=== PATIENT | female | born 1950 | race Caucasian/White ===

== ENCOUNTER 2021-08-31 21:52 | Emergency (ER) | payer BC, MEDICARE ==
--- NOTE | 2021-08-31 22:15 | EDM.PDOC ---
ED HPI GENERAL MEDICAL PROBLEM - General Stated Complaint: MEDICAL VIA HELENA Time Seen by Provider: 08/31/21 22:01 Source of Information: Reports: EMS History Limitations: Reports: Altered Mental Status - History of Present Illness INITIAL COMMENTS - FREE TEXT/NARRATIVE: ADOLPH 22:00 MD in room on arrival. [id number] female brought in by [facility] from their cabin for head injury with loss of consciousness. Patient tripped over a rug in the cabin causing her to fall and strike her face and forehead on the ground. There was loss of consciousness for about 10 minutes. The patient is now confused and has a large hematoma on the forehead and face. The patient is anticoagulated with Coumadin for atrial fibrillation. For this reason we activated a trauma team activation. Patient was taken from the ambulance bay directly to CT room for a CT of the head without contrast to evaluate for a bleed. She is from the [facility] normally doctors at [facility]. She is on chronic anticoagulation for atrial fibrillation. Her last INR was 3 months ago. The patient perseverates with questions and is still not fully aware of the situation. denies pain Pain Score (Numeric/FACES): 0 - Related Data Allergies Allergy/AdvReac Type Severity Reaction Status Date / Time No Known Allergies Allergy Verified 08/31/21 22:19 ED ROS GENERAL - Review of Systems Review Of Systems: Unable To Obtain Reason Not Obtained: Altered mental status with confusion HEENT: Reports: Other (Swelling of the left forehead and face) Respiratory: Reports: No Symptoms Cardiovascular: Reports: Blood Pressure Problem GI/Abdominal: Reports: No Symptoms. Denies: Nausea, Vomiting : Reports: Other (Immediately upon arriving on the CT table the patient had to urinate and was incontinent of urine) Musculoskeletal: Reports: No Symptoms Skin: Reports: Bruising (Bruising on the left forehead and left face), Wound (Patient on the left face) Neurological: Reports: Confusion Psychiatric: Reports: Anxiety Hematologic/Lymphatic: Reports: No Symptoms Immunologic: Reports: No Symptoms - Physical Exam Exam: See Below Exam Limited By: Altered Mental Status (Having episodes of confusion and altered mental status. She has perseveration.) General Appearance: Alert, Anxious, Mild Distress Eye Exam: Bilateral Eye: EOMI, PERRL Ears: Normal TMs Nose: Normal Inspection, Normal Mucosa Throat/Mouth: Normal Inspection, Normal Oropharynx, Normal Voice, No Airway Compromise Head Exam: Normocephalic, Facial Ecchymosis (Left ecchymosis on the forehead and zygomatic arch), Facial Swelling (Swelling over the left forehead and left face), Facial Tenderness (Left facial tenderness) Neck: Normal Inspection. No: Tender Midline Respiratory/Chest: No Respiratory Distress, Lungs Clear, Normal Breath Sounds Cardiovascular: Normal Peripheral Pulses, Regular Rate, Rhythm, No Murmur GI/Abdominal: Normal Bowel Sounds, Soft, Non-Tender Neuro Exam (Abbreviated): Alert, No Motor/Sensory Deficits, Confused, Disoriented, Slow to Respond Extremities: Normal Inspection, Normal Range of Motion Psychiatric: Anxious Skin Exam: Wound/Incision (Abrasion left face) Course - Vital Signs Last Recorded V/S: Last Vital Signs Temp 36.3 C 08/31/21 23:27 Pulse 63 08/31/21 23:27 Resp 20 08/31/21 23:27 BP 154/83 H 08/31/21 23:27 Pulse Ox 93 L 08/31/21 23:27 - Orders/Labs/Meds Orders: Active Orders 24 hr Category Date Time Status CORONAVIRUS COVID-19 RAPID [MOLEC] Stat Lab 09/01/21 00:01 Ordered Labs: Laboratory Tests 08/31/21 08/31/21 08/31/21 Range/Units 22:25 22:25 22:25 WBC 8.5 (4.5-11.0) K/uL RBC 4.35 (3.30-5.50) M/uL Hgb 13.5 (12.0-15.0) g/dL Hct 40.8 (36.0-48.0) % MCV 94 (80-98) fL MCH 31 (27-31) pg MCHC 33 (32-36) % Plt Count 206 (150-400) K/uL Neut % (Auto) 48.0 (36-66) % Lymph % (Auto) 40.5 (24-44) % Trimble % (Auto) 8.5 H (2-6) % Eos % (Auto) 2.3 (2-4) % Baso % (Auto) 0.7 (0-1) % PT 10.9 H (9.2-10.6) sec INR 1.1 APTT 24.5 (21.4-31.8) sec Sodium 141 (140-148) mmol/L Potassium 4.1 (3.6-5.2) mmol/L Chloride 103 (100-108) mmol/L Carbon Dioxide 25 (21-32) mmol/L Anion Gap 12.8 (5.0-14.0) mmol/L BUN 9 (7-18) mg/dL Creatinine 0.7 (0.6-1.0) mg/dL Est Cr Clr Drug Dosing 64.41 mL/min Estimated GFR (MDRD) > 60 (>60) Glucose 144 H (74-106) mg/dL Calcium 9.1 (8.5-10.1) mg/dL Urine Color (YELLOW) Urine Appearance (CLEAR) Urine pH (5.0-8.0) Ur Specific Heyworth (1.008-1.030) Urine Protein (NEGATIVE) mg/dL Urine Glucose (UA) (NEGATIVE) mg/dL Urine Ketones (NEGATIVE) mg/dL Urine Occult Blood (NEGATIVE) Urine Nitrite (NEGATIVE) Urine Bilirubin (NEGATIVE) Urine Urobilinogen (0.2-1.0) EU/dL Ur Leukocyte Esterase (NEGATIVE) Urine RBC (0-5) Urine WBC (0-5) Ur Epithelial Cells Amorphous Sediment Urine Bacteria Urine Mucus 08/31/21 Range/Units 22:46 WBC (4.5-11.0) K/uL RBC (3.30-5.50) M/uL Hgb (12.0-15.0) g/dL Hct (36.0-48.0) % MCV (80-98) fL MCH (27-31) pg MCHC (32-36) % Plt Count (150-400) K/uL Neut % (Auto) (36-66) % Lymph % (Auto) (24-44) % Trimble % (Auto) (2-6) % Eos % (Auto) (2-4) % Baso % (Auto) (0-1) % PT (9.2-10.6) sec INR APTT (21.4-31.8) sec Sodium (140-148) mmol/L Potassium (3.6-5.2) mmol/L Chloride (100-108) mmol/L Carbon Dioxide (21-32) mmol/L Anion Gap (5.0-14.0) mmol/L BUN (7-18) mg/dL Creatinine (0.6-1.0) mg/dL Est Cr Clr Drug Dosing mL/min Estimated GFR (MDRD) (>60) Glucose (74-106) mg/dL Calcium (8.5-10.1) mg/dL Urine Color Yellow (YELLOW) Urine Appearance Clear (CLEAR) Urine pH 6.0 (5.0-8.0) Ur Specific [place] 1.015 (1.008-1.030) Urine Protein Negative (NEGATIVE) mg/dL Urine Glucose (UA) 100 H (NEGATIVE) mg/dL Urine Ketones Negative (NEGATIVE) mg/dL Urine Occult Blood Negative (NEGATIVE) Urine Nitrite Negative (NEGATIVE) Urine Bilirubin Negative (NEGATIVE) Urine Urobilinogen 0.2 (0.2-1.0) EU/dL Ur Leukocyte Esterase Negative (NEGATIVE) Urine RBC 0-5 (0-5) Urine WBC 0-5 (0-5) Ur Epithelial Cells Rare Amorphous Sediment Few Urine Bacteria Few Urine Mucus Not seen - Radiology Interpretation Free Text/Narrative:: Patient immediately went from the ambulance bay to CT of the head without contrast. This failed to demonstrate any acute intracranial abnormalities. There is no intracranial hemorrhage, mass-effect, or mass. There is a sizable left forehead and facial hematoma. There is no blood in the sinuses. - Re-Assessments/Exams Free Text/Narrative Re-Assessment/Exam: 08/31/21 23:45 I reviewed the patient's labs showing a leukocyte count of 8.5, hemoglobin of 13.5, hematocrit of 40.8 and platelet count of 206,000. Basic metabolic profile shows a sodium 141, potassium 4.1, chloride of 103, bicarbonate of 25, BUN of 9 with a creatinine of 0.7 and a glucose of 144. The PT/INR is 10.9/1.1 and the PTT is 24.5. COVID-19 test is negative. As this is a trauma, I am recommending transfer of the patient to a trauma facility for further observation and care. She did sustain a substantial head injury with loss of consciousness that the family now says is about 2 minutes followed by confusion. The patient has had continued lapses in memory as well as perseveration. She is on Eliquis and not warfarin for her anticoagulation. She was recently started on sotalol and taken off of losartan. She reports that since starting the sotalol she has had several episodes where she has collapsed. Her EKG looks like she is currently in normal sinus rhythm on the contact lens polisher. I did discuss the case with Dr. Hopkins, emergency room physician at [facility] who accepts the patient in transfer to their trauma unit. The patient will likely be housed for observation in the ER. We will arrange for EMS to transfer her. It is now decided that she wants to go to [facility]. I explained to her that I would not be able to send her there by ambulance because we by state law he cannot have an ambulance go past 1 trauma center to another especially with such a great distance further than the first. I did review with her, her , and her daughter the [place] trauma centers and their relative distances. The [facility] is still the closest, however, the patient lives in [place], [place] and doctors at [facility]. 09/01/21 00:10 transfer is being delayed by discussions with family on what is the best thing to do at this time. Still trying to convince the patient and family that transferring to [facility] is the safest and quickest measure. 09/01/21 00:13 patient has decided that she is going to sign out AGAINST MEDICAL ADVICE and go tomorrow to [place]. I did go over extensively risks of this. Patient is aware of the risks as is the family. Departure - Departure Time of Disposition: 00:08 Disposition: Against Medical Advice 07 Clinical Impression: Chronic anticoagulation, Paroxysmal atrial fibrillation, Concussion with less than 1 hour loss of consciousness Traumatic hematoma of face Qualifiers: Encounter type: initial encounter Qualified Code(s): S00.83XA - Contusion of other part of head, initial encounter - Discharge Information Instructions: Living With Traumatic Brain Injury, Head Injury, Adult, [id number], Facial or Scalp Contusion, [id number], Concussion, Adult, [id number], Supporting Someone With Traumatic Brain Injury Referrals: PCP,None [Primary Care Provider] - Care Plan Goals: Return if any worsening of condition. Call 911. Critical Care Note - Critical Care Note Total Time (mins): 45 (Trauma team activation. 45 minutes spent with evaluating the patient, managing work-up, and facilitating transfer. This excludes procedures.) Sepsis Event Note (ED) - Focused Exam Vital Signs: Vital Signs Temp Pulse Resp BP Pulse Ox 08/31/21 23:27 36.3 C 63 20 154/83 H 93 L 08/31/21 22:52 63 20 154/83 H 93 L 08/31/21 22:22 63 12 155/80 H 95 08/31/21 22:08 36.3 C 66 14 179/101 H 96 - Problem List & Annotations (1) Chronic anticoagulation SNOMED Code(s): 113054198 Code(s): Z79.01 - UNHAIRER (CURRENT) USE OF ANTICOAGULANTS Status: Acute Priority: High Current Visit: Yes (2) Concussion with less than 1 hour loss of consciousness SNOMED Code(s): 879362596 Code(s): S06.0X9A - CONCUSSION W LOSS OF CONSCIOUSNESS OF UNSP DURATION, INIT Status: Acute Priority: High Current Visit: Yes (3) Paroxysmal atrial fibrillation SNOMED Code(s): 025312224 Code(s): I48.0 - PAROXYSMAL ATRIAL FIBRILLATION Status: Acute Priority: High Current Visit: Yes (4) Traumatic hematoma of face SNOMED Code(s): 967013208, 383319844 Code(s): S00.83XA - CONTUSION OF OTHER PART OF HEAD, INITIAL ENCOUNTER Status: Acute Priority: High Current Visit: Yes Qualifiers: Encounter type: initial encounter Qualified Code(s): S00.83XA - Contusion of other part of head, initial encounter - My Orders Last 24 Hours: My Active Orders 09/01/21 00:01 CORONAVIRUS COVID-19 RAPID [MOLEC] Stat - Assessment/Plan Last 24 Hours: My Active Orders 09/01/21 00:01 CORONAVIRUS COVID-19 RAPID [MOLEC] Stat
--- NOTE | 2021-08-31 22:33 | CRLCT ---
For Patients: As a result of the Century Cures Act, medical imaging exams and procedure reports are released immediately into your electronic medical record. You may view this report before your referring provider. If you have questions, please contact your health care provider. Indication: Head injury, loss of consciousness, on warfarin Technique: Nonenhanced axial CT imaging through the head. Sagittal and coronal reconstructions are provided. Comparison: None Findings: There is no evidence for intracranial hemorrhage or cerebral edema. Calderón-white matter differentiation is preserved. The ventricles are normal in size. The basal cisterns are patent. The calvarium is intact. The visualized paranasal sinuses and mastoid air cells are aerated. There is a left frontal scalp hematoma. Impression: Left frontal scalp hematoma. No evidence of calvarial fracture, intracranial hemorrhage, or brain contusion. Please note that all CT scans at this facility use dose modulation, iterative reconstruction, and/or weight-based dosing when appropriate to reduce radiation dose to as low as reasonably achievable. Dictated by Mai Frazier MD @ 08/31/2021 10:30:45 PM (Electronically Signed)
== END 2021-09-01 00:46 | disposition left against medical advice (07) ==
LOC: JP.ED 21:52
DX: S06.0X1A Concussion with loss of consciousness of 30 minutes or less, initial encounter (principal); S00.83XA Contusion of other part of head, initial encounter; I48.0 Paroxysmal atrial fibrillation; D68.9 Coagulation defect, unspecified; Z20.822 Contact with and (suspected) exposure to COVID-19; W01.198A Fall on same level from slipping, tripping and stumbling with subsequent striking against other object, initial encounter
CPT/HCPCS: 36415; 70450; 80048; 81001; 85025; 85610; 85730; 99285; U0002